=== PATIENT | male | born 1985 | race Caucasian/White ===

== ENCOUNTER 2017-10-13 17:14 | Emergency (ER) | payer SELFPAY ==
[~2017-10-13] VITALS: Ht 185.4 cm; Wt 104.5 kg
[2017-10-13 17:21] VITALS: BP 161/99; TEMP 98.1
[2017-10-13] MEDS ORDERED: NORCO 325 MG-51 TAB PO (18:48)
[2017-10-13 19:09] VITALS: PULSE 96
== END 2017-10-13 19:10 | disposition home or self-care (01) ==
LOC: COL.ER 17:14
DX: S62.306A Unspecified fracture of fifth metacarpal bone, right hand, initial encounter for closed fracture (principal); F17.210 Nicotine dependence, cigarettes, uncomplicated; W22.8XXA Striking against or struck by other objects, initial encounter
CPT/HCPCS: Q4021; Q4050

== ENCOUNTER 2018-01-01 05:37 | Emergency (ER) | payer SELFPAY ==
[~2018-01-01 05:37] MED LIST: NORCO 325 MG-51 TAB PO
== END 2018-01-01 06:00 | disposition left against medical advice (07) ==
LOC: COL.ER 05:37
DX: R69 Illness, unspecified (principal)